=== PATIENT | male | born 1970 | race African-American/Black ===

== ENCOUNTER 2017-10-27 20:26 | Inpatient (IN) ==
[2017-10-27 23:33] LABS: Basophils % 0.3 % (0.0-0.8); Eosinophils % 0.2 % (0.00-10.9); Hematocrit 39.9 VOL% (42.0-52.0); Hemoglobin 13.1 GM/DL (14.0-18.0); Immature Granulocytes % 0.5 %; Immature Granulocytes Absolute 0.05 #; Lymphocytes # 0.5 10*3/uL (1.4-4.0); Lymphocytes % 4.9 % (21.2-54.2); Mean Corpuscular HGB Conc 32.8 GM/DL (32-36); Mean Corpuscular Hemoglobin 31 PG (27-34); Mean Corpuscular Volume 95.2 FL (87-102); Mean Platelet Volume 11.9 FL (9.6-12.0); Monocytes # 0.9 10*3/uL (0.11-0.8); Monocytes % 7.9 % (1.7-12.7); Neutrophils # 9.4 10*3/uL (1.4-7.4); Neutrophils % 86.2 % (38.7-73.9); Platelet Count 162 T/CUMM (130-400); Red Blood Count 4.19 MC/CUMM (3.8-5.5); Red Cell Distribution Width 14.3 % (9.3-17.3); White Blood Count 10.8 T/CUMM (4-12)
[2017-10-27 23:47] LABS: Albumin 4.1 G/DL (3.4-5.0); Bilirubin,Total 0.6 MG/DL (0.2-1.0); Calcium 8.9 MG/DL (8.5-10.1); Potassium 5.1 MMOL/L (3.5-5.1)
[2017-10-28 00:19] LABS: Band Neutrophils 7 % (0-10); Lymphocytes 3 % (20-55); Segmented Neutrophils 83 % (50-85)
[2017-10-28 00:20] LABS: Platelet Estimate Adequate; Total Cells Counted 100
[2017-10-28 01:01] LABS: Apearance,Urine Slightly Hazy (Clear); Bilirubin,Urine Negative (Negative); Blood, Urine Small mg/dL (Negative); Glucose,Urine (UA) Negative (Negative); Granular Casts,Urine 3 /LPF (0-1); Ketones,Urine 5 mg/dL (Negative); Mucus,Urine Occasional /LPF (Occasional); Nitrite,Urine Negative (Negative); Protein,Urine 30 MG/DL; RBC,Urine 1 /HPF (0-4); Urine Color Yellow (Yellow); Urine Specific Gravity 1.016 (1.001-1.035); Urine Urobilinogen < 2.0 EU/DL (0.2-1.0); WBC,Urine 1 /HPF (0-6)
[2017-10-28] MEDS ORDERED: SODIUM CHLORIDE 0.9% 1,000 ML IV STA (01:02)
[2017-10-28] MEDS ORDERED: ONDANSETRON 4 MG/2 ML VIAL ONE (01:36)
[2017-10-28] MEDS ORDERED: MORPHINE 10 MG/1 ML VIAL ONE (01:37)
[2017-10-28] MEDS ORDERED: MORPHINE 10 MG/10 ML VIAL INTRATHEC ONE (01:53)
[2017-10-28] MEDS ORDERED: ONDANSETRON 4 MG/2 ML VIAL IV STA (01:56)
[2017-10-28] MEDS ORDERED: MORPHINE 4 MG/1 ML VIAL IV STA (02:07)
[2017-10-28] MEDS ORDERED: ONDANSETRON 4 MG/2 ML VIAL IV PRN (09:05)
[2017-10-28] MEDS ORDERED: MORPHINE 4 MG/1 ML VIAL IV PRN (09:05)
[2017-10-28] MEDS ORDERED: ACETAMINOPHEN 325 MG TABLET PO PRN (09:07)
[2017-10-28] MEDS: LACTATED RINGERS 1,000 ML IV SCH ×3 (09:18→19:00)
[2017-10-28] MEDS ORDERED: chlordiazePOXIDE 25 MG CAPSULE PO PRN (11:12)
[2017-10-28] MEDS: FOLIC ACID 1 MG TABLET PO SCH (12:27)
[2017-10-28] MEDS: MULTIVITAMIN (CENTRUM) TABLET PO SCH (12:27)
[2017-10-28] MEDS: THIAMINE 100 MG TABLET PO SCH (12:27)
[2017-10-28] MEDS: ALBUTEROL/IPRATROPIUM 3 ML NEB RESP TX SCH ×2 (14:15→20:10)
[2017-10-28] MEDS: KETOROLAC 30 MG/1 ML VIAL IV SCH ×2 (16:36→21:03)
[2017-10-28] MEDS: GABAPENTIN 100 MG CAPSULE PO SCH (21:03)
[2017-10-29] MEDS: ALBUTEROL/IPRATROPIUM 3 ML NEB RESP TX SCH ×2 (00:38→07:14)
[2017-10-29] MEDS: LACTATED RINGERS 1,000 ML IV SCH ×2 (02:50→09:43)
[2017-10-29] MEDS: KETOROLAC 30 MG/1 ML VIAL IV SCH ×2 (03:39→10:12)
[2017-10-29 06:11] LABS: Basophils % 0.5 % (0.0-0.8); Eosinophils # 0.1 10*3/uL (0.0-0.87); Eosinophils % 2.5 % (0.00-10.9); Hemoglobin 11.6 GM/DL (14.0-18.0); Immature Granulocytes % 0.2 %; Immature Granulocytes Absolute 0.01 #; Lymphocytes # 0.7 10*3/uL (1.4-4.0); Lymphocytes % 15.3 % (21.2-54.2); Mean Corpuscular HGB Conc 33.1 GM/DL (32-36); Mean Corpuscular Hemoglobin 31 PG (27-34); Mean Corpuscular Volume 94.1 FL (87-102); Mean Platelet Volume 11.3 FL (9.6-12.0); Monocytes # 0.5 10*3/uL (0.11-0.8); Monocytes % 11.4 % (1.7-12.7); Neutrophils # 3.1 10*3/uL (1.4-7.4); Neutrophils % 70.1 % (38.7-73.9); Platelet Count 143 T/CUMM (130-400); Red Blood Count 3.72 MC/CUMM (3.8-5.5); Red Cell Distribution Width 13.9 % (9.3-17.3); White Blood Count 4.4 T/CUMM (4-12)
[2017-10-29 06:41] LABS: Albumin 3.1 G/DL (3.4-5.0); Bilirubin,Total 0.8 MG/DL (0.2-1.0); Calcium 8.5 MG/DL (8.5-10.1); Osmolality,Calculated 273.5 MOS/KG (273-304); Potassium 4.1 MMOL/L (3.5-5.1); Total Protein 6.5 G/DL (6.4-8.3)
[2017-10-29 06:55] LABS: Folate 11.4 NG/ML (5.4-24.0)
[2017-10-29] MEDS: THIAMINE 100 MG TABLET PO SCH (08:22)
[2017-10-29] MEDS: MULTIVITAMIN (CENTRUM) TABLET PO SCH (08:22)
[2017-10-29] MEDS: FOLIC ACID 1 MG TABLET PO SCH (08:22)
[2017-10-29] MEDS: GABAPENTIN 100 MG CAPSULE PO SCH (08:23)
[2017-10-29] MEDS ORDERED: PANTOPRAZOLE 40 MG TABLET PO SCH (09:00)
[2017-10-29 11:15] VITALS: BP 124/79
[2017-10-29 13:28] LABS: Basophils % 0.5 % (0.0-0.8); Eosinophils # 0.2 10*3/uL (0.0-0.87); Eosinophils % 2.7 % (0.00-10.9); Hematocrit 35.4 VOL% (42.0-52.0); Hemoglobin 11.7 GM/DL (14.0-18.0); Immature Granulocytes % 0.3 %; Immature Granulocytes Absolute 0.02 #; Lymphocytes # 0.8 10*3/uL (1.4-4.0); Lymphocytes % 11.8 % (21.2-54.2); Mean Corpuscular HGB Conc 33.1 GM/DL (32-36); Mean Corpuscular Hemoglobin 32 PG (27-34); Mean Corpuscular Volume 95.4 FL (87-102); Mean Platelet Volume 11.4 FL (9.6-12.0); Monocytes # 0.6 10*3/uL (0.11-0.8); Monocytes % 9.4 % (1.7-12.7); Neutrophils % 75.3 % (38.7-73.9); Platelet Count 147 T/CUMM (130-400); Red Blood Count 3.71 MC/CUMM (3.8-5.5); Red Cell Distribution Width 13.7 % (9.3-17.3); White Blood Count 6.6 T/CUMM (4-12)
[2017-10-29] MEDS ORDERED: TAMSULOSIN 0.4 MG CAPSULE PO SCH (21:00)
== END 2017-10-29 13:41 | disposition home or self-care (01) | DRG 184 ==
LOC: N.ED 20:26 → N.EDINP 10-28 05:52 → N.3E 10-28 06:17
PROVIDERS: ADMIT Surgery; ATTEND Surgery

== ENCOUNTER 2021-08-18 10:42 | Observation (INO) ==
[2021-08-18 11:49] LABS: Basophils % 0.8 % (0.0-0.8); Eosinophils # 0.1 10*3/uL (0.0-0.87); Eosinophils % 4.2 % (0.00-10.9); Hematocrit 40.3 VOL% (42.0-52.0); Immature Granulocytes % 0.4 %; Immature Granulocytes Absolute 0.01 #; Lymphocytes # 1.1 10*3/uL (1.4-4.0); Lymphocytes % 42.4 % (21.2-54.2); Mean Corpuscular HGB Conc 32.3 GM/DL (32-36); Mean Corpuscular Volume 99.3 FL (87-102); Mean Platelet Volume 10.9 FL (9.6-12.0); Monocytes % 12.2 % (1.7-12.7); Platelet Count 225 T/CUMM (130-400); Red Blood Count 4.06 MC/CUMM (3.8-5.5); Red Cell Distribution Width 14.6 % (9.3-17.3); White Blood Count 2.6 T/CUMM (4-12)
[2021-08-18 11:56] LABS: Alanine Aminotransferase 26 U/L (16-61); Albumin 3.7 G/DL (3.4-5.0); Alkaline Phosphatase 70 U/L (45-117); Aspartate Amino Transferase 33 U/L (0-37); Bilirubin,Total < 0.39 MG/DL (0.20-1.00); Blood Urea Nitrogen 7 MG/DL (7-18); Calcium 8.3 MG/DL (8.5-10.1); Carbon Dioxide 27 MMOL/L (21-32); Estimated Glom Filtration Rate 133 ML/MIN; Glucose 101 MG/DL (74-106); Osmolality,Calculated 278.3 MOS/KG (273-304); Potassium 3.8 MMOL/L (3.5-5.1); Sodium 141 MMOL/L (136-145); Total Protein 7.5 G/DL (6.4-8.2)
[2021-08-18 12:00] LABS: Salicylate < 2.8 MG/DL (2.8-20)
[2021-08-18 12:03] LABS: Acetaminophen < 2.0 UG/ML (10-30)
[2021-08-18 12:39] LABS: Barbiturates Screen,Urine Negative (Negative); Benzodiazepines Screen,Urine Negative (Negative); Cannabinoid Screen,Urine Negative (Negative); Opiate Screen,Urine Negative (Negative); Phencyclidine Screen,Urine Negative (Negative)
[2021-08-18] MEDS ORDERED: GLUCAGON 1 MG VIAL IM PRN (14:06)
[2021-08-18] MEDS ORDERED: DEXTROSE 10% 250 ML BAG IV PRN (14:06)
[2021-08-18] MEDS ORDERED: ONDANSETRON 4 MG/2 ML VIAL IV PRN (14:06)
[2021-08-18 14:07] LABS: PT Patient Result 11.3 SECS (10.5-12.0)
[2021-08-18] MEDS ORDERED: THIAMINE INJ 100 MG, FOLIC ACID INJ 1 MG, MULTIVITAMIN INJ 10 ML in DEXTROSE 5% NACL 0.... IV SCH (14:30)
[2021-08-18] MEDS ORDERED: ENOXAPARIN 40 MG/0.4 ML SYRINGE SUBCUT SCH (14:30)
[2021-08-18 15:24] LABS: Folate 5.72 NG/ML (5.38-24.0)
[2021-08-18] MEDS: PANTOPRAZOLE 40 MG TABLET PO SCH (17:05)
[2021-08-18] MEDS: LACTULOSE 20 GM/30 ML UDCUP PO SCH (17:10)
[2021-08-19 07:57] LABS: Basophils % 0.8 % (0.0-0.8); Eosinophils # 0.1 10*3/uL (0.0-0.87); Eosinophils % 2.2 % (0.00-10.9); Hematocrit 39.6 VOL% (42.0-52.0); Hemoglobin 12.4 GM/DL (14.0-18.0); Immature Granulocytes % 0.3 %; Immature Granulocytes Absolute 0.01 #; Lymphocytes % 27.8 % (21.2-54.2); Mean Corpuscular HGB Conc 31.3 GM/DL (32-36); Mean Corpuscular Volume 100.5 FL (87-102); Monocytes % 13.8 % (1.7-12.7); Neutrophils % 55.1 % (38.7-73.9); Platelet Count 234 T/CUMM (130-400); Red Blood Count 3.94 MC/CUMM (3.8-5.5); Red Cell Distribution Width 14.7 % (9.3-17.3); White Blood Count 3.6 T/CUMM (4-12)
[2021-08-19 08:06] VITALS: BP 130/73
[2021-08-19 08:20] LABS: Alanine Aminotransferase 29 U/L (16-61); Albumin 3.5 G/DL (3.4-5.0); Alkaline Phosphatase 61 U/L (45-117); Aspartate Amino Transferase 33 U/L (0-37); Bilirubin,Total < 0.39 MG/DL (0.20-1.00); Blood Urea Nitrogen 6 MG/DL (7-18); Calcium 8.5 MG/DL (8.5-10.1); Carbon Dioxide 27 MMOL/L (21-32); Estimated Glom Filtration Rate 120 ML/MIN; Glucose 82 MG/DL (74-106); Potassium 4.4 MMOL/L (3.5-5.1); Sodium 143 MMOL/L (136-145)
[2021-08-19] MEDS: LACTULOSE 20 GM/30 ML UDCUP PO SCH (09:06)
[2021-08-19] MEDS: PANTOPRAZOLE 40 MG TABLET PO SCH (09:06)
== END 2021-08-19 11:20 | disposition home or self-care (01) ==
LOC: N.EDINP 10:42 → N.ED 10:42 → SUATTDRO 14:06 → N.3E 17:31
PROVIDERS: ADMIT Emergency Medicine; ATTEND Internal Medicine